=== PATIENT | male | born 1965 | race African-American/Black ===

== ENCOUNTER 2018-03-13 18:30 | Emergency (ER) | payer BC ==
[~2018-03-13] VITALS: Ht 180.3 cm; Wt 79.4 kg
[2018-03-13 19:23] LABS: URINE BILIRUBIN 1+ (Negative); URINE BLOOD 2+ (Negative); URINE CLARITY CLEAR; URINE COLOR YELLOW; URINE GLUCOSE-RANDOM* NEGATIVE (Negative); URINE KETONES TRACE (Negative); URINE LEUKOCYTES NEGATIVE (Negative); URINE NITRITE NEGATIVE (Negative); URINE PROTEIN (DIPSTICK) TRACE (Negative); URINE SPECIFIC GRAVITY > 1.030 (1.005-1.035); URINE UROBILINOGEN 0.2 E.U./dl (0.2-1.0)
[2018-03-13 19:27] LABS: ABSOLUTE NEUTROPHILS 4.1 thou/uL (1.4-8.2); BASOPHILS 0.7 % (0.0-2.0); EOSINOPHILS 1.6 % (0.0-3.0); HEMATOCRIT 43.6 % (42.0-52.0); LYMPHOCYTES 32.8 % (24.0-44.0); MCH 31.9 pg (26.0-34.0); MCHC 34.4 g/dL (28.0-37.0); MCV 92.5 fL (80.0-100.0); MONOCYTES 9.8 % (1.0-8.0); PLATELET COUNT 236 thou/uL (150-400); POLYS 55.1 % (36.0-66.0); RBC 4.71 mil/uL (4.50-6.00); RDW 13.8 % (10.5-14.5); WBC 7.5 thou/uL (4.0-11.0)
[2018-03-13 19:35] LABS: CASTS None Seen /LPF (None Seen); CRYSTALS None Seen /LPF (None Seen); SQUAMOUS 0-3 Few /LPF (0-3); URINE RBC 3-10 Few /HPF (0-2)
[2018-03-13 19:35] LABS: ANION GAP 10 mmol/L (7-16); BUN 18 mg/dL (7-18); CALCIUM 9.3 mg/dL (8.5-10.1); CHLORIDE 101 mmol/L (98-107); CO2 27 mmol/L (21-32); GLUCOSE 90 mg/dL (74-106); POTASSIUM 3.8 mmol/L (3.5-5.1); SODIUM 138 mmol/L (136-145)
[2018-03-13 19:36] LABS: BACTERIA 1-9 Few /HPF (None Seen); URINE WBC 0-5 Rare /HPF (0-5)
[2018-03-13 19:39] LABS: PROTIME 10.4 Seconds (9.3-11.4)
[2018-03-13 19:42] LABS: ALBUMIN 3.9 g/dL (3.4-5.0); LIPASE 157 U/L (73-393); SGOT 15 U/L (15-37); SGPT 20 U/L (30-65); TOTAL BILIRUBIN 0.5 mg/dL (<0.1-1.0); TOTAL PROTEIN 8.7 g/dL (6.4-8.2); TROPONIN-I <0.06 ng/mL (<0.06)
[2018-03-13] MEDS ORDERED: PRILOSEC OTC20 MG PO (21:11)
[2018-03-13] MEDS ORDERED: CARAFATE 1 GM TA1 G1 PO (21:11)
[2018-03-13] MEDS ORDERED: ZOFRAN ODT4 MG PO (21:11)
[2018-03-13] MEDS ORDERED: BENTYL 10 MG CA10 M1 PO (21:11)
[2018-03-13] MEDS ORDERED: TRAMADOL 50 MG50 MG PO (21:15)
[2018-03-13 21:20] VITALS: BP 191/92
--- NOTE | 2018-03-14 10:48 | EKG ---
[address] [address] ELECTROCARDIOGRAM REPORT Name: ILAN CISNEROS [id number] Admission: 03/13/18 Attend Phys: Discharge: 03/13/18 Date of : 67 Report #: [id number] THIS REPORT FOR: //name// 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
== END 2018-03-13 21:23 | disposition home or self-care (01) ==
LOC: ER 18:30
PROVIDERS: Physician Assistant
DX: E86.0 Dehydration (principal); R10.13 Epigastric pain; I10 Essential (primary) hypertension; F17.210 Nicotine dependence, cigarettes, uncomplicated; Z90.49 Acquired absence of other specified parts of digestive tract

== ENCOUNTER 2018-12-21 18:10 | Emergency (ER) | payer BC ==
[~2018-12-21] VITALS: Ht 180.3 cm; Wt 77.1 kg
[~2018-12-21 18:10] MED LIST: BENTYL 10 MG CA10 M1 PO; CARAFATE 1 GM TA1 G1 PO; PRILOSEC OTC20 MG PO; TRAMADOL 50 MG50 MG PO; ZOFRAN ODT4 MG PO
[2018-12-21] MEDS ORDERED: MOBIC15 MG PO (19:51)
[2018-12-21] MEDS ORDERED: KEFLEX500 M1 PO (19:51)
[2018-12-21] MEDS ORDERED: NORCO 5-325 TA1 EAC1 PO (19:51)
[2018-12-21] MEDS ORDERED: NORVASC5 M1 PO (20:12)
[2018-12-21 20:25] VITALS: BP 195/106
== END 2018-12-21 20:35 | disposition home or self-care (01) ==
LOC: ER 18:10
DX: M77.8 Other enthesopathies, not elsewhere classified (principal); I10 Essential (primary) hypertension; F17.210 Nicotine dependence, cigarettes, uncomplicated; Z90.49 Acquired absence of other specified parts of digestive tract

== ENCOUNTER 2019-02-24 19:31 | Emergency (ER) | payer BC ==
[~2019-02-24] VITALS: Ht 180.3 cm; Wt 74.8 kg
[~2019-02-24 19:31] MED LIST changes: +KEFLEX500 M1 PO; +MOBIC15 MG PO; +NORCO 5-325 TA1 EAC1 PO; +NORVASC5 M1 PO
[2019-02-24] MEDS ORDERED: CYCLOBENZAPRINE10 MG PO (21:34)
[2019-02-24] MEDS ORDERED: NORCO 10-325 T1 EACH PO (21:34)
[2019-02-24] MEDS ORDERED: MEDROLDOSEPACK PO (21:34)
[2019-02-24 21:50] VITALS: BP 182/97
== END 2019-02-24 21:50 | disposition home or self-care (01) ==
LOC: ER 19:31
DX: M54.32 Sciatica, left side (principal); I10 Essential (primary) hypertension; F17.210 Nicotine dependence, cigarettes, uncomplicated; Z90.49 Acquired absence of other specified parts of digestive tract

== ENCOUNTER 2020-02-04 17:42 | Emergency (ER) | payer BC ==
[~2020-02-04] VITALS: Ht 182.9 cm; Wt 66.7 kg
[~2020-02-04 17:42] MED LIST changes: +CYCLOBENZAPRINE10 MG PO; +MEDROLDOSEPACK PO; +NORCO 10-325 T1 EACH PO
[2020-02-04] MEDS ORDERED: NORCO 5-325 TA1 EAC2 PO (18:57)
[2020-02-04 19:19] VITALS: BP 171/93
== END 2020-02-04 19:35 | disposition home or self-care (01) ==
LOC: ER 17:42
DX: S80.11XA Contusion of right lower leg, initial encounter (principal); I10 Essential (primary) hypertension; F17.210 Nicotine dependence, cigarettes, uncomplicated; Z90.49 Acquired absence of other specified parts of digestive tract; Z79.899 Other long term (current) drug therapy; V89.2XXA Person injured in unspecified motor-vehicle accident, traffic, initial encounter; Y93.I9 Activity, other involving external motion; Y92.488 Other paved roadways as the place of occurrence of the external cause; Y99.8 Other external cause status

== ENCOUNTER 2021-01-23 19:17 | Emergency (ER) | payer BC ==
[~2021-01-23] VITALS: Ht 177.8 cm; Wt 72.6 kg
[~2021-01-23 19:17] MED LIST changes: +NORCO 5-325 TA1 EAC2 PO
[2021-01-23] MEDS ORDERED: NOHOMEMEDICATIONS (20:13)
[2021-01-23] MEDS ORDERED: ZANAFLEX4 MG PO (20:36)
[2021-01-23] MEDS ORDERED: MOBIC7.5 MG PO (20:36)
[2021-01-23 20:55] VITALS: BP 198/90
== END 2021-01-23 20:56 | disposition home or self-care (01) ==
LOC: ER 19:17
DX: S46.012A Strain of muscle(s) and tendon(s) of the rotator cuff of left shoulder, initial encounter (principal); I10 Essential (primary) hypertension; F17.210 Nicotine dependence, cigarettes, uncomplicated; F12.90 Cannabis use, unspecified, uncomplicated; Z90.49 Acquired absence of other specified parts of digestive tract; X50.1XXA Overexertion from prolonged static or awkward postures, initial encounter; Y93.89 Activity, other specified; Y92.89 Other specified places as the place of occurrence of the external cause; Y99.0 Civilian activity done for income or pay